=== PATIENT | male | born 1965 | race Caucasian/White ===

== ENCOUNTER 2018-12-29 18:39 | Observation (INO) | payer OTHER ==
[2018-12-29] MEDS ORDERED: SODIUM CHLORIDE 0.9% 500 ML 500 ML IV STA (19:42)
--- NOTE | 2018-12-29 19:45 | ED ---
General Adult HPI - General Chief complaint: Syncope Stated complaint: syncope Time Seen by Provider: 12/29/18 19:27 Source: patient, RN notes reviewed, old records reviewed Mode of arrival: ambulatory Limitations: no limitations - History of Present Illness Initial comments: 53-year-old male patient presents to ED for chief complaint of syncopal episode. Patient reports that he has had 3 prior syncopal episodes in the past, all at rest and with vigorous physical exertion. Patient reports that the incident today he was sitting on the couch watching television when he felt a reported poon to his head, patient reports that he positions himself and then had a loss of consciousness that he estimates is approximately 15 minutes based on the time. Patient reports that during that he urinated on himself. Patient then presented to the hospital. Patient currently reports that he has a very mild frontal lobe headache. Denies any changes in vision or pain elsewhere. Denies any chest pain or shortness of breath. Patient is a history of hypertension but denies any previous heart conditions. Denies any seizure history. Denies other complaints. Systemic: Pt denies fatigue, fever/chills, rash. Pt denies weakness, night sweats, weight loss. Neuro: Pt denies headache, visual disturbances, pre-syncope. HEENT: Pt denies ocular discharge or irritation, otalgia, rhinorrhea, pharyngitis or notable lymphadenopathy. Cardiopulmonary: Pt denies chest pain, SOB, heart palpitations, dyspnea on exertion. Abdominal/GI: Pt denies abdominal pain, n/v/d. : Pt denies dysuria, burning w/ urination, frequency/urgency. Denies new onset urinary or bowel incontinence. MSK: Pt denies myalgia, loss of strength or function in extremities. Neuro: Pt denies new onset weakness, paresthesias. - Related Data Home Medications Medication Instructions Recorded Confirmed No Known Home Medications 12/29/18 12/29/18 Allergies Allergy/AdvReac Type Severity Reaction Status Date / Time No Known Allergies Allergy Verified 12/29/18 20:13 Review of Systems ROS Statement: Those systems with pertinent positive or pertinent negative responses have been documented in the HPI. ROS Other: All systems not noted in ROS Statement are negative. Past Medical History Additional Past Medical History / Comment(s): syncope History of Any Multi-Drug Resistant Organisms: None Reported Past Surgical History: Hernia Repair Smoking Status: Never smoker Past Alcohol Use History: Occasional Past Drug Use History: Marijuana General Exam - General Exam Comments Initial Comments: Constitutional: NAD, AOX3, Pt has pleasant affect. HEENT: NC/AT, trachea midline, neck supple, no lymphadenopathy. Posterior pharynx non erythematous, without exudates. External ears appear normal, without discharge. Mucous membranes moist. Eyes PERRLA, EOM intact. There is no scleral icterus. No pallor noted. Cardiopulmonary: RRR, no murmurs, rubs or gallops, no JVD noted. Lungs CTAB in anterior and posterior timmons. No peripheral edema. Abdominal exam: Abdomen soft and non-distended. Abdomen non-tender to palpation in all 4 quadrants. Bowel sounds active in LLQ. No hepatosplenomegaly. No ecchymosis Neuro: CN II-XII intact. No nuchal rigidity. No raccon eyes, no freitas sign, no hemotympanum. No cervical spinal tenderness. MSK: No posterior calf tenderness bilaterally, homans sign negative bilaterally. Posterior tibialis and radial pulse +2 bilaterally. Sensation intact in upper and lower extremities. Full active ROM in upper and lower extremities, 5/5 stregnth. Limitations: no limitations Course Vital Signs 12/29/18 18:53 Temperature 98.2 F Pulse Rate 69 Respiratory 18 Rate Blood Pressure 180/98 O2 Sat by Pulse 99 Oximetry Medical Decision Making - Medical Decision Making 53-year-old male patient presents to ED for chief complaint of syncopal episode. Patient reports that he has had 3 prior syncopal episodes in the past, all at rest and with vigorous physical exertion. Patient reports that the incident today he was sitting on the couch watching television when he felt a reported poon to his head, patient reports that he positions himself and then had a loss of consciousness that he estimates is approximately 15 minutes based on the time. Patient reports that during that he urinated on himself. Patient then presented to the hospital. Patient currently reports that he has a very mild frontal lobe headache. Denies any changes in vision or pain elsewhere. Denies any chest pain or shortness of breath. Patient is a history of hypertension but denies any previous heart conditions. Denies any seizure history. Denies other complaints. Patient also displayed mild hypertension, otherwise stable for normal limits. Physical exam did not display acute pathology. Neurologic exam within normal limits. Laboratory investigations are non-impressive. Troponin negative. EKG not concerning for acute ischemia. Patient be admitted for syncopal episode. Case discussed with accepting physician Dr. Gallagher. - Lab Data Result diagrams: 12/29/18 19:50 12/29/18 19:50 Lab Results 12/29/18 12/29/18 12/29/18 Range/Units 19:50 19:50 19:50 WBC 10.5 (3.8-10.6) k/uL RBC 4.43 (4.30-5.90) m/uL Hgb 13.9 (13.0-17.5) gm/dL Hct 38.5 L (39.0-53.0) % MCV 87.0 (80.0-100.0) fL MCH 31.3 (25.0-35.0) pg MCHC 36.0 (31.0-37.0) g/dL RDW 12.8 (11.5-15.5) % Plt Count 272 (150-450) k/uL Neutrophils % 71 % Lymphocytes % 19 % Monocytes % 8 % Eosinophils % 0 % Basophils % 0 % Neutrophils # 7.4 (1.3-7.7) k/uL Lymphocytes # 2.0 (1.0-4.8) k/uL Monocytes # 0.8 (0-1.0) k/uL Eosinophils # 0.0 (0-0.7) k/uL Basophils # 0.0 (0-0.2) k/uL PT 9.8 (9.0-12.0) sec INR 0.9 (<1.2) APTT 24.3 (22.0-30.0) sec Sodium 139 (137-145) mmol/L Potassium 3.9 (3.5-5.1) mmol/L Chloride 104 (98-107) mmol/L Carbon Dioxide 18 L (22-30) mmol/L Anion Gap 17 mmol/L BUN 12 (9-20) mg/dL Creatinine 1.01 (0.66-1.25) mg/dL Est GFR (CKD-EPI)AfAm >90 (>60 ml/min/1.73 sqM) Est GFR (CKD-EPI)NonAf 84 (>60 ml/min/1.73 sqM) Glucose 101 H (74-99) mg/dL POC Glucose (mg/dL) (75-99) mg/dL POC Glu [employer] ID Calcium 9.7 (8.4-10.2) mg/dL Total Bilirubin 0.7 (0.2-1.3) mg/dL AST 29 (17-59) U/L ALT 23 (21-72) U/L Alkaline Phosphatase 65 (38-126) U/L Troponin I (0.000-0.034) ng/mL Total Protein 8.2 (6.3-8.2) g/dL Albumin 4.8 (3.5-5.0) g/dL 12/29/18 12/29/18 Range/Units 19:50 19:56 WBC (3.8-10.6) k/uL RBC (4.30-5.90) m/uL Hgb (13.0-17.5) gm/dL Hct (39.0-53.0) % MCV (80.0-100.0) fL MCH (25.0-35.0) pg MCHC (31.0-37.0) g/dL RDW (11.5-15.5) % Plt Count (150-450) k/uL Neutrophils % % Lymphocytes % % Monocytes % % Eosinophils % % Basophils % % Neutrophils # (1.3-7.7) k/uL Lymphocytes # (1.0-4.8) k/uL Monocytes # (0-1.0) k/uL Eosinophils # (0-0.7) k/uL Basophils # (0-0.2) k/uL PT (9.0-12.0) sec INR (<1.2) APTT (22.0-30.0) sec Sodium (137-145) mmol/L Potassium (3.5-5.1) mmol/L Chloride (98-107) mmol/L Carbon Dioxide (22-30) mmol/L Anion Gap mmol/L BUN (9-20) mg/dL Creatinine (0.66-1.25) mg/dL Est GFR (CKD-EPI)AfAm (>60 ml/min/1.73 sqM) Est GFR (CKD-EPI)NonAf (>60 ml/min/1.73 sqM) Glucose (74-99) mg/dL POC Glucose (mg/dL) 105 H (75-99) mg/dL POC Glu [employer] ID Srinath Doll Calcium (8.4-10.2) mg/dL Total Bilirubin (0.2-1.3) mg/dL AST (17-59) U/L ALT (21-72) U/L Alkaline Phosphatase (38-126) U/L Troponin I <0.012 (0.000-0.034) ng/mL Total Protein (6.3-8.2) g/dL Albumin (3.5-5.0) g/dL Disposition Clinical Impression: Syncopal episodes Disposition: ADMITTED IP TO THIS HOSP Condition: Fair Is patient prescribed a controlled substance at d/c from ED?: No Referrals: Maykel Carreno MD [Primary Care Provider] - 1-2 days
[2018-12-29 19:59] LABS: Glucose,Whole Blood 105 mg/dL (75-99)
[2018-12-29 20:36] LABS: Basophils % (A) 0 %; Eosinophils % (A) 0 %; HCT 38.5 % (39.0-53.0); HGB 13.9 gm/dL (13.0-17.5); Lymphocytes % (A) 19 %; MCH 31.3 pg (25.0-35.0); Mean Platelet Volume 6.8; Monocytes # (A) 0.8 k/uL (0-1.0); Monocytes % (A) 8 %; Neutrophils # (A) 7.4 k/uL (1.3-7.7); Neutrophils % (A) 71 %; Platelet Count 272 k/uL (150-450); RBC 4.43 m/uL (4.30-5.90); RDW 12.8 % (11.5-15.5); WBC 10.5 k/uL (3.8-10.6)
[2018-12-29 20:45] LABS: INR 0.9 (<1.2); Partial Thromboplastin Time 24.3 sec (22.0-30.0); Prothrombin Time 9.8 sec (9.0-12.0)
[2018-12-29 20:46] LABS: ALT 23 U/L (21-72); AST 29 U/L (17-59); African American GFR (CKD) >90 (>60 ml/min/1.73 sqM); Albumin 4.8 g/dL (3.5-5.0); Alkaline Phosphatase 65 U/L (38-126); Anion Gap 17 mmol/L; Blood Urea Nitrogen 12 mg/dL (9-20); Calcium 9.7 mg/dL (8.4-10.2); Carbon Dioxide 18 mmol/L (22-30); Chloride 104 mmol/L (98-107); Glucose 101 mg/dL (74-99); Potassium 3.9 mmol/L (3.5-5.1); Sodium 139 mmol/L (137-145); Total Bilirubin 0.7 mg/dL (0.2-1.3); Total Protein 8.2 g/dL (6.3-8.2)
--- NOTE | 2018-12-29 20:57 | XR ---
EXAMINATION TYPE: XR chest 2V DATE OF EXAM: 12/29/2018 COMPARISON: NONE HISTORY: Syncope TECHNIQUE: Frontal and lateral views of the chest are obtained. FINDINGS: Heart and mediastinum are normal. Lungs are clear. Diaphragm is normal. Bony thorax appear s normal. IMPRESSION: Normal chest.
--- NOTE | 2018-12-29 21:54 | CT ---
EXAMINATION TYPE: CT brain wo con DATE OF EXAM: 12/29/2018 COMPARISON: None HISTORY: Pt experienced syncopal episode, pt states he was asleep, or out for about 20 minutes, urina adebayo involuntarily. CT DLP: 1094.4 mGycm Automated exposure control for dose reduction was used. FINDINGS: Ventricles and sulci appear normal. There is no mass effect nor midline shift. There is no sign of in tracranial hemorrhage. The calvarium is intact. IMPRESSION: NEGATIVE HEAD CT SCAN.
[2018-12-29] MEDS ORDERED: NALOXONE 0.4 MG/ML 1 ML VIAL IV PRN (22:57)
--- NOTE | 2018-12-30 03:08 | P.HPIM ---
History of Present Illness H&P Date: 12/29/18 Chief Complaint: Presyncope 53-year-old male with no significant past medical history except for mild hypertension Patient presents today due to concerns regarding urinary incontinence during sleep/while passed out. Patient reports that he was at baseline status of health he was working from home when suddenly he remembered his that who during the month of December years ago. Then he felt a poon going up his had lichen adrenally and poon and then felt very tired and sleepy he was working on his computer he showed off the computer and put his head down on the couch to lay down and relax, then he woke up 30 minutes later and found himself wet from urination. He denies any other injuries or any tongue biting there were no witnesses to whether he was seizing or passed out or just sleeping. Patient reports similar episodes over the past couple years happening once every 6 months where he will feel an adrenally poon to the head and then he feels that he needs to rest after. Last time happened 6 months ago he was at the gym after a good workout with no limitations to his workout in any form of shortness of breath or any chest pain or any palpitations. He then was taking a warm shower when suddenly felt that he needs to sit down and relax and he thinks he might have slept or passed out in the shower but then woke up and then left the shower with no incidence he didn't seek any medical attention at that time. He also adds that over the weekend he was partying by drinking alcohol no other drugs were used except for his regular medical marijuana at the [facility]. During the episodes mentioned above he denies any associated shortness of breath or dizziness denies any associated palpitations chest pain or nausea or vomiting. He came into the hospital because he was concerned regarding the urine incontinence which has never happened before. In the ED his initial labs were unremarkable vital signs showed elevated systolic blood pressure. CT of the brain was negative patient was admitted for neuro and cardiac monitoring and evaluation with further testing including but not limited to echocardiogram and EEG Review of Systems Pertinent positives as noted in HPI. All other systems were reviewed and are negative Past Medical History Additional Past Medical History / Comment(s): syncope History of Any Multi-Drug Resistant Organisms: None Reported Past Surgical History: Hernia Repair Past Anesthesia/Blood Transfusion Reactions: No Reported Reaction Smoking Status: Never smoker - Past Family History Father Family Medical History: Cancer Additional Family Medical History / Comment(s): Prostate CA Mother Family Medical History: No Reported History Medications and Allergies Home Medications Medication Instructions Recorded Confirmed Type No Known Home Medications 12/29/18 12/29/18 History Allergies Allergy/AdvReac Type Severity Reaction Status Date / Time No Known Allergies Allergy Verified 12/30/18 00:34 Physical Exam Vitals: Vital Signs Temp Pulse Pulse Resp BP BP Pulse Ox 12/30/18 01:02 18 12/30/18 00:00 98.4 F 70 18 167/93 99 12/29/18 23:04 68 18 160/92 97 12/29/18 18:53 98.2 F 69 18 180/98 99 Intake and Output 12/29/18 12/29/18 12/30/18 14:59 22:59 06:59 Intake Total 500 Balance 500 Intake: Amount of Fluid Infused ( 500 ml) Other: Weight 77.111 kg Constitutional: No acute distress, conversant, pleasant Eyes: Anicteric sclerae, moist conjunctiva, no lid-lag Pupils equal round reactive to light ENMT: NC/AT Oropharynx clear, no erythema, exudates Neck: Supple, FROM, no masses, or JVD No carotid bruits No thyromegaly Lungs: Clear to auscultation Clear to percussion Normal respiratory effort, no accessory muscle use Cardiovascular: Heart regular in rate and rhythm, No murmurs, gallops, or rubs No peripheral edema Abdominal: Soft Nontender, no guarding, rebound or rigidity Abdomen moving with respiration Normoactive bowel sounds No hepatomegaly, No splenomegaly No palpable mass No abdominal wall hernia noted Skin: Normal temperature, tone, texture, turgor No induration No subcutaneous nodules No rash, lesions No ulcers Extremities: No digital cyanosis No clubbing Pedal pulses intact and symmetrical Radial pulses intact and symmetrical No calf tenderness Psychiatric: Alert and oriented to person, place and time Appropriate affect fair judgment Neuro Muscles Strength 5/5 in all 4 extremities Sensation to light touch grossly present throughout Cranial nerves II-XII grossly intact No focal sensory deficits Lymphatics: no palpable cervical or supraclavicular , or inguinal lymph nodes Results CBC & Chem 7: 12/29/18 19:50 12/29/18 19:50 Labs: Abnormal Lab Results - Last 24 Hours (Table) 12/29/18 12/29/18 12/29/18 Range/Units 19:50 19:50 19:56 Hct 38.5 L (39.0-53.0) % Carbon Dioxide 18 L (22-30) mmol/L Glucose 101 H (74-99) mg/dL POC Glucose (mg/dL) 105 H (75-99) mg/dL Thrombosis Risk Factor Assmnt - Choose All That Apply Each Factor Represents 1 point: Age 41-60 years Thrombosis Risk Factor Assessment Total Risk Factor Score: 1 Thrombosis Risk Factor Assessment Level: Low Risk Assessment and Plan Assessment: 53-year-old male with history of hypertension admitted under observation with anticipated length of stay less than 2 midnights to rule out and monitor for any underlying seizures or arrhythmias Plan: Presyncope, rule out arrhythmia versus seizures Urine incontinence while sleeping/passed out Neurochecks Cardiac monitoring Follow-up electrolytes Cardiology consult Neuro consult Check EEG Check echo Monitor vital signs closely Hypertension Monitor vital signs closely A systolic blood pressure consistently elevated we'll consider starting patient on antihypertensive Full code DVT prophylaxis: Mechanical Discussed with: Patient, ER, RN Anticipated length of stay less than [address]: Home A total of 60 minutes was spent on the care of this complex patient more than 50% of the time was spent in counseling and care coordination.
[2018-12-30] MEDS ORDERED: SODIUM CHLORIDE 0.9% 1,000 ML IV SCH (03:15)
--- NOTE | 2018-12-30 03:42 | ED ---
Medical Decision Making - Lab Data Result diagrams: 12/29/18 19:50 12/29/18 19:50 Lab Results 12/29/18 12/29/18 12/29/18 Range/Units 19:50 19:50 19:50 WBC 10.5 (3.8-10.6) k/uL RBC 4.43 (4.30-5.90) m/uL Hgb 13.9 (13.0-17.5) gm/dL Hct 38.5 L (39.0-53.0) % MCV 87.0 (80.0-100.0) fL MCH 31.3 (25.0-35.0) pg MCHC 36.0 (31.0-37.0) g/dL RDW 12.8 (11.5-15.5) % Plt Count 272 (150-450) k/uL Neutrophils % 71 % Lymphocytes % 19 % Monocytes % 8 % Eosinophils % 0 % Basophils % 0 % Neutrophils # 7.4 (1.3-7.7) k/uL Lymphocytes # 2.0 (1.0-4.8) k/uL Monocytes # 0.8 (0-1.0) k/uL Eosinophils # 0.0 (0-0.7) k/uL Basophils # 0.0 (0-0.2) k/uL PT 9.8 (9.0-12.0) sec INR 0.9 (<1.2) APTT 24.3 (22.0-30.0) sec Sodium 139 (137-145) mmol/L Potassium 3.9 (3.5-5.1) mmol/L Chloride 104 (98-107) mmol/L Carbon Dioxide 18 L (22-30) mmol/L Anion Gap 17 mmol/L BUN 12 (9-20) mg/dL Creatinine 1.01 (0.66-1.25) mg/dL Est GFR (CKD-EPI)AfAm >90 (>60 ml/min/1.73 sqM) Est GFR (CKD-EPI)NonAf 84 (>60 ml/min/1.73 sqM) Glucose 101 H (74-99) mg/dL POC Glucose (mg/dL) (75-99) mg/dL POC Glu [employer] Interpreter ID Calcium 9.7 (8.4-10.2) mg/dL Total Bilirubin 0.7 (0.2-1.3) mg/dL AST 29 (17-59) U/L ALT 23 (21-72) U/L Alkaline Phosphatase 65 (38-126) U/L Troponin I (0.000-0.034) ng/mL Total Protein 8.2 (6.3-8.2) g/dL Albumin 4.8 (3.5-5.0) g/dL 12/29/18 12/29/18 Range/Units 19:50 19:56 WBC (3.8-10.6) k/uL RBC (4.30-5.90) m/uL Hgb (13.0-17.5) gm/dL Hct (39.0-53.0) % MCV (80.0-100.0) fL MCH (25.0-35.0) pg MCHC (31.0-37.0) g/dL RDW (11.5-15.5) % Plt Count (150-450) k/uL Neutrophils % % Lymphocytes % % Monocytes % % Eosinophils % % Basophils % % Neutrophils # (1.3-7.7) k/uL Lymphocytes # (1.0-4.8) k/uL Monocytes # (0-1.0) k/uL Eosinophils # (0-0.7) k/uL Basophils # (0-0.2) k/uL PT (9.0-12.0) sec INR (<1.2) APTT (22.0-30.0) sec Sodium (137-145) mmol/L Potassium (3.5-5.1) mmol/L Chloride (98-107) mmol/L Carbon Dioxide (22-30) mmol/L Anion Gap mmol/L BUN (9-20) mg/dL Creatinine (0.66-1.25) mg/dL Est GFR (CKD-EPI)AfAm (>60 ml/min/1.73 sqM) Est GFR (CKD-EPI)NonAf (>60 ml/min/1.73 sqM) Glucose (74-99) mg/dL POC Glucose (mg/dL) 105 H (75-99) mg/dL POC Glu [employer] Interpreter ID Lavon, Srinath Calcium (8.4-10.2) mg/dL Total Bilirubin (0.2-1.3) mg/dL AST (17-59) U/L ALT (21-72) U/L Alkaline Phosphatase (38-126) U/L Troponin I <0.012 (0.000-0.034) ng/mL Total Protein (6.3-8.2) g/dL Albumin (3.5-5.0) g/dL - EKG Data -: EKG Interpreted by Me (and Dr. Vogel) EKG Comments: Ventricular rate 72, painful 154, QR is 100, QT/QTc 416/455. No sinus rhythm, normal EKG, no concern for acute ischemia. Disposition Clinical Impression: Syncopal episodes Disposition: ADMITTED IP TO THIS HOSP Condition: Fair Is patient prescribed a controlled substance at d/c from ED?: No
[2018-12-30 04:55] LABS: Appearance,Urine Clear (Clear); Bilirubin,Urine Negative (Negative); Blood,Urine Negative (Negative); Color,Urine Yellow; Glucose,Urine (UA) Negative (Negative); Ketones,Urine Trace (Negative); Leukocyte Esterase,Urine Negative (Negative); Nitrite,Urine Negative (Negative); Protein,Urine Negative (Negative); Specific Gravity,Urine 1.009 (1.001-1.035); Urobilinogen,Urine <2.0 mg/dL (<2.0)
[2018-12-30] MEDS ORDERED: LISINOPRIL 20 MG TAB PO SCH (11:30)
[2018-12-30] MEDS ORDERED: amLODIPine 5 MG TAB PO SCH (11:30)
--- NOTE | 2018-12-30 12:54 | P.CRDCN ---
History of Present Illness History of present illness: This is a pleasant 53-year-old male past medical history significant for syncope in the past, hypertension not currently taking medication and marijuana use. He denies prior history of coronary artery disease, dyslipidemia or diabetes mellitus. We have been asked to see him in consultation secondary to syncope. He states yesterday evening while he was sitting down working on his computer he started feeling acutely flushed and a warm sensation rushing to his head. He turned off his computer and laid down on the couch. The next thing he remembers is waking up approximately 30-45 minutes later. He denies chest pain, shortness of breath, dizziness, nausea, vomiting or palpitations. He was not clammy or sweaty. When he woke up he noticed he had urinated on himself. He has had this happen in the past around 2-3 times over the course of the last 3 years however he has never urinated on himself before. EKG reveals sinus mechanism with no acute ST or T wave abnormalities noted. Telemetry tracings unremarkable. Chest x-ray is negative for acute cardiopulmonary process. CT of the brain is unremarkable. He takes no daily cardiac medications. At the time of my exam: CONSTITUTIONAL: Denies fever. Denies chills. EYES: Denies blurred vision. Denies vision changes. Denies eye pain. EARS, NOSE, MOUTH & THROAT: Denies headache. Denies sore throat. Denies ear pain. CARDIOVASCULAR: Denies chest pain. Denies shortness of breath. Denies orthopnea. Denies PND. Denies palpitations. RESPIRATORY: Denies cough. GASTROINTESTINAL: Denies abdominal pain. Denies diarrhea. Denies constipation. Denies nausea. Denies vomiting. MUSCULOSKELETAL: Denies myalgias. INTEGUMENTARY: Denies pruitis. Denies rash. NEUROLOGIC: Denies numbness. Denies tingling. Denies weakness. PSYCHIATRIC: Denies anxiety. Denies depression. ENDOCRINE: Denies fatigue. Denies weight change. Denies polydipsia. Denies polyurina. GENITOURINARY: Denies burning, hematuria or urgency with micturation. HEMATOLOGIC: Denies history of anemia. Denies bleeding. Blood pressure 181/101 with a heart rate of 68 afebrile maintaining oxygen saturation on room air GENERAL: This is a 53-year-old male in no apparent distress at the time of my examination. HEENT: Head is atraumatic, normocephalic. Pupils are equal, round. Sclerae anicteric. Conjunctivae are clear. Mucous membranes of the mouth are moist. Neck is supple. There is no jugular venous distention. No carotid bruit is heard. LUNGS: Clear to auscultation no wheezes, rales or rhonchi. No chest wall tenderness is noted on palpation or with deep breathing. HEART: Regular rate and rhythm without murmurs, rubs or gallops. S1 and S2 heard. ABDOMEN: Soft, nontender. Bowel sounds are heard. No organomegaly noted. EXTREMITIES: No evidence of peripheral edema and no calf tenderness noted. VASCULAR: Radial and dorsalis pedis pulses palpated, no evidence of clubbing. NEUROLOGIC: Patient is awake, alert and oriented x3. ASSESSMENT Syncope, possibly related to vasovagal response Hypertension PLAN Obtain 2D echocardiogram and doppler study to assess cardiac structure and function. Initiate on lotrel 5/20 mg daily. No telemetry evidence to suggest rk/tachy-arrhythmia. Check for orthostatic changes. If above diagnostic testing is unremarkable apply 30-day event monitor. Will schedule for outpatient tilt table test. Thank you kindly for this consultation. Nurse Practitioner note has been reviewed, I agree with a documented findings and plan of care. Patient was seen and examined. Past Medical History Additional Past Medical History / Comment(s): syncope History of Any Multi-Drug Resistant Organisms: None Reported Past Surgical History: Hernia Repair Past Anesthesia/Blood Transfusion Reactions: No Reported Reaction Smoking Status: Never smoker - Past Family History Father Family Medical History: Cancer Additional Family Medical History / Comment(s): Prostate CA Mother Family Medical History: No Reported History Medications and Allergies Home Medications Medication Instructions Recorded Confirmed Type No Known Home Medications 12/29/18 12/29/18 History Allergies Allergy/AdvReac Type Severity Reaction Status Date / Time No Known Allergies Allergy Verified 12/30/18 00:34 Physical Exam Vitals: Vital Signs Temp Pulse Pulse Pulse Pulse Pulse Resp 12/30/18 12:00 68 69 73 69 16 12/30/18 11:34 98.1 F 68 16 12/30/18 09:08 69 73 69 12/30/18 08:00 62 69 73 69 18 12/30/18 07:56 98.0 F 62 18 12/30/18 04:00 97.7 F 66 18 12/30/18 01:02 18 12/30/18 00:00 98.4 F 70 18 12/29/18 23:04 68 18 12/29/18 18:53 98.2 F 69 18 BP BP BP BP BP BP Pulse Ox 12/30/18 12:00 12/30/18 11:34 181/101 100 12/30/18 09:08 186/95 166/108 155/83 98 12/30/18 08:00 12/30/18 07:56 170/83 98 12/30/18 04:00 135/75 99 12/30/18 01:02 12/30/18 00:00 167/93 99 12/29/18 23:04 160/92 97 12/29/18 18:53 180/98 99 Intake and Output 12/29/18 12/30/18 12/30/18 22:59 06:59 14:59 Intake Total 500 Balance 500 Intake: Amount of Fluid Infused ( 500 ml) Other: Voiding Method Toilet Weight 77.111 kg Results 12/29/18 19:50 12/29/18 19:50 Cardiac Enzymes 12/29/18 12/29/18 Range/Units 19:50 19:50 AST 29 (17-59) U/L Troponin I <0.012 (0.000-0.034) ng/mL Coagulation 12/29/18 Range/Units 19:50 PT 9.8 (9.0-12.0) sec APTT 24.3 (22.0-30.0) sec CBC 12/29/18 Range/Units 19:50 WBC 10.5 (3.8-10.6) k/uL RBC 4.43 (4.30-5.90) m/uL Hgb 13.9 (13.0-17.5) gm/dL Hct 38.5 L (39.0-53.0) % Plt Count 272 (150-450) k/uL Comprehensive Metabolic Panel 12/29/18 Range/Units 19:50 Sodium 139 (137-145) mmol/L Potassium 3.9 (3.5-5.1) mmol/L Chloride 104 (98-107) mmol/L Carbon Dioxide 18 L (22-30) mmol/L BUN 12 (9-20) mg/dL Creatinine 1.01 (0.66-1.25) mg/dL Glucose 101 H (74-99) mg/dL Calcium 9.7 (8.4-10.2) mg/dL AST 29 (17-59) U/L ALT 23 (21-72) U/L Alkaline Phosphatase 65 (38-126) U/L Total Protein 8.2 (6.3-8.2) g/dL Albumin 4.8 (3.5-5.0) g/dL Current Medications Generic Name Dose Route Start Last Admin Trade Name Freq PRN Reason Stop Dose Admin Amlodipine Besylate 5 mg 12/30/18 11:30 12/30/18 11:30 Norvasc PO 5 mg DAILY MICHELLE Administration Sodium Chloride 1,000 mls @ 100 mls/hr 12/30/18 03:15 12/30/18 06:30 Saline 0.9% IV 100 mls/hr .Q10H MICHELLE Administration Lisinopril 20 mg 12/30/18 11:30 12/30/18 11:30 Zestril PO 20 mg DAILY MICHELLE Administration Naloxone HCl 0.2 mg 12/29/18 22:57 Narcan IV Q2M PRN Opioid Reversal Intake and Output 12/29/18 12/30/18 12/30/18 22:59 06:59 14:59 Intake Total 500 Balance 500 Intake: Amount of Fluid Infused ( 500 ml) Other: Voiding Method Toilet Weight 77.111 kg 12/29/18 19:50 12/29/18 19:50
--- NOTE | 2018-12-30 13:00 | ECHOF ---
Referral Reason:pre syncope MEASUREMENTS -------- HEIGHT: 175.3 cm WEIGHT: 77.1 kg BP: 135/75 RVIDd: 3.2 cm (< 3.3) IVSd: 1.2 cm (0.6 - 1.1) LVIDd: 3.5 cm (3.9 - 5.3) LVPWd: 1.3 cm (0.6 - 1.1) IVSs: 1.6 cm LVIDs: 2.3 cm LVPWs: 1.9 cm LA Diam: 3.6 cm (2.7 - 3.8) LAESV Index (A-L): 29.93 ml/m Ao Diam: 3.2 cm (2.0 - 3.7) AV Cusp: 2.1 cm (1.5 - 2.6) MV EXCURSION: 15.792 mm (> 18.000) MV EF SLOPE: 134 mm/s (70 - 150) EPSS: 0.3 cm MV E Pee: 0.88 m/s MV DecT: 295 ms MV A Pee: 0.71 m/s MV E/A Ratio: 1.24 RAP: 5.00 mmHg RVSP: 25.25 mmHg TAPSE: 18.35 mm FINDINGS -------- Sinus rhythm. This was a technically good study. The left ventricular size is normal. There is borderline concentric left ventricular hypertrophy. The diastolic filling pattern is normal for the age of the patient 7.68. The right ventricle is normal in size. The left atrial size is normal. The right atrium is normal in size. Interatrial and interventricular septum intact. The aortic valve is trileaflet and appears structurally normal. Trace to mild aortic regurgitation. There is trace mitral regurgitation. Mild tricuspid regurgitation present. Right ventricular systolic pressure is normal at < 35 mmHg. Trace/mild (physiologic) pulmonic regurgitation. The aortic root size is normal. Normal inferior vena cava with normal inspiratory collapse consistent with estimated right atrial pre ssure of 5 mmHg. There is no pericardial effusion. CONCLUSIONS -------- 1. Sinus rhythm. 2. This was a technically good study. 3. The left ventricular size is normal. 4. There is borderline concentric left ventricular hypertrophy. 5. The diastolic filling pattern is normal for the age of the patient 7.68 6. The right ventricle is normal in size. 7. The left atrial size is normal. 8. The right atrium is normal in size. 9. Interatrial and interventricular septum intact. 10. The aortic valve is trileaflet and appears structurally normal. 11. Trace to mild aortic regurgitation. 12. There is trace mitral regurgitation. 13. Mild tricuspid regurgitation present. 14. Right ventricular systolic pressure is normal at < 35 mmHg. 15. Trace/mild (physiologic) pulmonic regurgitation. 16. The aortic root size is normal. 17. Normal inferior vena cava with normal inspiratory collapse consistent with estimated right atrial pressure of 5 mmHg. 18. There is no pericardial effusion. MANAGER STATISTICAL PROGRAMMING: Shaniqua Alan RDCS
[2018-12-30 15:47] VITALS: BP 151/88; PULSE 60; RESP 18; TEMP 98.4
--- NOTE | 2018-12-30 17:08 | P.DS ---
Providers Date of admission: 12/29/18 23:20 Expected date of discharge: 12/30/18 Attending physician: Sydney Gallagher MD Consults: 12/29/18 22:57 Consult Physician Stat Consulting Provider: Barbie Cruz Consult Reason/Comments: syncopal episode Do you want consulting provider notified?: Yes, Notify in am Consult Physician Stat Consulting Provider: Ángel Harrington Consult Reason/Comments: syncopal episode Do you want consulting provider notified?: Yes, Notify in am Primary care physician: [facility] Course: The patient is a 53-year-old male with a PMH of diet-controlled hypertension who presented to the ED after possible episodes of syncope. The patient noted that over the past 2-3 years, he has had 4-5 episodes of instances where he would feel a sudden poon to the head, followed by a feeling of lethargy where he would "take a nap", and would wake up after a few minutes, feeling back to his baseline. The patient notes that a similar episode happened yesterday, but this time after awakening, he noticed that he had urinary incontinence. He denied having chest pain, palpitations, or shortness of breath during these episodes. He also denied noticing any tongue bites. He also denied any drug use other than marijuana, which he last used a few days prior. The patient underwent an extensive outpatient in the emergency room with a CT brain that was unremarkable and an EKG that revealed a normal sinus rhythm at 72 bpm. Patient was admitted under observation for further monitoring and evaluation by both cardiology and neurology. The patient underwent an echocardiogram which was unremarkable. The patient was started on Lotrel 50/20, and cardiology recommended an outpatient tilt table test along with a 30 day event monitor. Neurology evaluated the patient and recommended no further intervention that the patient may follow-up with his primary care as an outpatient. Patient was seen and examined at the bedside on the day of discharge. He was in good spirits and denied any active complaints. He noted no further similar symptoms and felt that he has been back to his baseline since the episode. He denied chest pain, shortness of nausea, vomiting, dizziness, or loss of consciousness. Patient was advised that if his symptoms recur or worsen, that he should return back to the emergency room immediately. Physical Examination General: Non-toxic, in no acute distress, appears stated age, normal weight HEENT: NC/AT, anicteric sclerae, moist conjunctiva, no lid-lag, PERRLA Cardiovascular: S1/S2 wnl, no murmurs, rubs, or gallops Lungs: Clear to auscultation, normal respiratory effort, no accessory muscle use Abdominal: Soft, non-tender, non-distended, no guarding, rebound, or rigidity Skin: Warm, dry Extremities: No edema or contractures Psychiatric: Alert and oriented to person, place and time, appropriate affect Neuro: CN II-XII grossly intact, Strength 5/5 in all 4 extremities, Speech intact, Sensation to light touch grossly intact throughout Discharge diagnosis: Pre-syncope; HTN A total of 35 minutes of time were spent preparing this complex discharge summary. Patient Condition at Discharge: Fair Plan - Discharge Summary New Discharge Prescriptions: New amLODIPine [Norvasc] 5 mg PO DAILY #30 tab Lisinopril [Zestril] 20 mg PO DAILY #30 tab Discharge Medication List Lisinopril [Zestril] 20 mg PO DAILY #30 tab 12/30/18 [Rx] amLODIPine [Norvasc] 5 mg PO DAILY #30 tab 12/30/18 [Rx] Follow up Appointment(s)/Referral(s): Elida Berumen MD [STAFF PHYSICIAN] - 6 Weeks (Tilt table study scheduled for January 01. Please call [phone] after 1 pm on SaturdayDec 31 for time of arrival. ) Maykel Carreno MD [Primary Care Provider] - 1-2 days Discharge Disposition: HOME SELF-CARE
--- NOTE | 2018-12-30 19:59 | P.CNNES ---
History of Present Illness Consult date: 12/30/18 Reason for Consult: Concern for syncopal episode vs. seizure Chief complaint: Urinary incontinence History of Present Illness: HISTORY OF PRESENT ILLNESS: Thank you for allowing me to evaluate Mr. Federico Ambrose. Mr. Ambrose is a 53-year-old male with no known past medical history presenting with an episode of feeling "off" and waking up having had urinary incontinence, consulted neurology for concern for seizure. Patient states that since about 2 years ago, he's had about 5-6 episodes of feeling a "poon" into his head, one of those episodes occurred when he had not eaten anything all day, had worked out extensively, and felt dizzy in the shower and fell on his knees because he was trying to catch himself. Patient denies any loss of consciousness or abnormal movements. Yesterday, he was working on his computer when he started not feeling right. He put his computer down, went to sleep for about 30 minutes, and when he woke up, he had noticed that he had urinated on himself. Denies tongue biting, any confusion or tiredness when he woke up. First time having urinary incontinence. Patient also endorses that these episodes appear to happen about 1-2 days after he "parties hard" where he drinks a good amount of alcohol. He does drink a good amount on a regular basis but not daily. He has gone without drinking for 1 week. Patient denies ever having EtOH withdrawal symptoms. 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 Patient also states that this week about 15 years ago patient's father , so there were additional thoughts going on in his head. PAST MEDICAL HISTORY: Hypertension, which patient was able to manage with diet exercise PAST SURGICAL HISTORY: Hernia repair HOME MEDICATIONS: None ALLERGIES: NO KNOWN DRUG ALLERGIES SOCIAL HISTORY: Denies smoking or drug abuse history. Patient does use medical marijuana for sleep. Patient does drink somewhat heavily, but patient himself does not think that he has abused issue FAMILY HISTORY: Sister with anxiety and fainting episodes. Father had prostate cancer. Mother at age 92. REVIEW OF SYSTEMS: The 14 systems are reviewed and no additional points are identified compared to the review of systems documented history and physical PHYSICAL EXAMINATION: VITAL SIGNS: T 98.4 HR 60 RR18 BP 151/88 O2 saturation 151/88 GEN.: NAD, pleasant and cooperative HEENT: NCAT, sclera without icterus NECK: Supple, no carotid bruit SKIN AND EXTREMITIES: Warm to touch, no edema NEURO: MENTAL STATUS: Patient alert and oriented to self, place, time. Able to name the current president. Speech fluent, able to name and repeat, following all commands readily. No right and left disorientation, extinction to double simultaneous stimulation, finger agnosia, neglect. CRANIAL NERVES II THROUGH XII: II: Pupils are equal and reactive to light symmetrically. No afferent pupillary defect. Visual timmons are intact. III, IV, : No ptosis. Extraocular movements full. No nystagmus. V: Facial sensation intact from V1-3. VII. No clear facial asymmetry. VIII: Hearing intact to finger rub bilaterally. IX, X: Symmetric palate elevation. XI: Shoulder shrug intact. XII: Tongue midline without fasciculation or atrophy. MOTOR: Normal bulk/tone. No pronator drift or tremor. Strength is 5/5 throughout all 4 extremities. SENSORY: Intact to light touch, temperature, pinprick in all 4 extremities. Romberg is negative. REFLEXES: 2+ throughout. Toes are downgoing. No clonus. Mari's is absent COORDINATION: Finger to nose and heel to baer intact. No dysmetria. Rapid alternating movements with good speed and accuracy. GAIT: Narrow-based and stable. Able to toe/heel/tandem walk DIAGNOSTIC TESTING: LABORATORY: WBC 10.5 hemoglobin 13.9 platelet 272 PT 19.8 INR 0.9 Sodium 139 potassium 3.9 chloride 104 bicarb 18 BUN 12 creatinine 1.01 glucose 101 AST 29 ALT 23 alk phos 65 troponin <0.012 urinalysis trace ketones IMAGING: CT head without contrast 12/29/2018: Negative head computed tomography scan. Transthoracic echocardiogram 12/30/2018: Sinus rhythm. LV/RV/LA/RA sizes are normal. Borderline concentric left ventricular hypertrophy. ASSESSMENT/RECOMMENDATIONS: Mr. Ambrose is a 53-year-old male with no known past medical history presenting with an episode of feeling "off" and waking up having had urinary incontinence, consulted neurology for concern for seizure. No loss of consciousness or abnormal movements. Patient's episodes do not appear seizure-like, and seizures are very low on the differential. Patient found with high blood pressure in the 180s, and patient associating these episodes in high stress condition and/or having "partied hard." Spoke to patient and in depth about seizure precaution although seizure is low on the differential. Also discussed with patient about keeping a good diary of his BP, especially when he has these sensations of "rushing to the head." Recommend patient being started on an a ntihypertensive. Patient has an appointment with a new PCP on 01/15/2019. Past Medical History Additional Past Medical History / Comment(s): syncope History of Any Multi-Drug Resistant Organisms: None Reported Past Surgical History: Hernia Repair Past Anesthesia/Blood Transfusion Reactions: No Reported Reaction Smoking Status: Never smoker - Past Family History Father Family Medical History: Cancer Additional Family Medical History / Comment(s): Prostate CA Mother Family Medical History: No Reported History Medications and Allergies Home Medications Medication Instructions Recorded Confirmed Type Lisinopril [Zestril] 20 mg PO DAILY #30 tab 12/30/18 Rx amLODIPine [Norvasc] 5 mg PO DAILY #30 tab 12/30/18 Rx Allergies Allergy/AdvReac Type Severity Reaction Status Date / Time No Known Allergies Allergy Verified 12/30/18 00:34 Physical Examination - Vital Signs Vital Signs: Vital Signs Temp Pulse Pulse Pulse Pulse Pulse Resp 12/30/18 16:00 60 69 73 69 18 12/30/18 15:46 98.4 F 60 18 12/30/18 12:00 68 69 73 69 16 12/30/18 11:34 98.1 F 68 16 12/30/18 09:08 69 73 69 12/30/18 08:00 62 69 73 69 18 12/30/18 07:56 98.0 F 62 18 12/30/18 04:00 97.7 F 66 18 12/30/18 01:02 18 12/30/18 00:00 98.4 F 70 18 12/29/18 23:04 68 18 12/29/18 18:53 98.2 F 69 18 BP BP BP BP BP BP Pulse Ox 12/30/18 16:00 12/30/18 15:46 151/88 100 12/30/18 12:00 12/30/18 11:34 181/101 100 12/30/18 09:08 186/95 166/108 155/83 98 12/30/18 08:00 12/30/18 07:56 170/83 98 12/30/18 04:00 135/75 99 12/30/18 01:02 12/30/18 00:00 167/93 99 12/29/18 23:04 160/92 97 12/29/18 18:53 180/98 99 Intake and Output 12/30/18 12/30/18 12/30/18 06:59 14:59 22:59 Intake Total 500 400 400 Balance 500 400 400 Intake: Amount of Fluid Infused ( 500 ml) Oral 400 Other 400 Other: Voiding Method Toilet Toilet Results - Laboratory Findings CBC and BMP: 12/29/18 19:50 12/29/18 19:50 Abnormal Lab Findings: Abnormal Labs 12/29/18 12/29/18 12/29/18 19:50 19:50 19:56 Hct 38.5 L Carbon Dioxide 18 L Glucose 101 H POC Glucose (mg/dL) 105 H Urine Ketones 12/30/18 04:15 Hct Carbon Dioxide Glucose POC Glucose (mg/dL) Urine Ketones Trace H
--- NOTE | 2018-12-30 22:54 | EEG ---
ELECTROENCEPHALOGRAM REPORT DATE OF PROCEDURE: 12/30/2018 ELECTROENCEPHALOGRAM (EEG) REPORT: TECHNIQUE: A routine 18-channel EEG was performed with video using the 10/20 international electrode placement system. HISTORY: Patient presented with a funny feeling in his head. The patient lay down and woke up 30 minutes later with incontinence. CURRENT MEDICATIONS: None. STUDY DURATION: 30 minutes. FINDINGS: BACKGROUND: The background activity consisted of 8-9 Hz rhythmic waveforms symmetrically distributed over both posterior quadrants. ACTIVATION: Hyperventilation: Induced mild physiological slowing. Photic Stimulation: Symmetric driving seen. Sleep: Drowsy. ABNORMALITIES: None. Please note that one channel of this EEG was dedicated to EKG. It demonstrated a sinus rhythm. IMPRESSION: Normal EEG. No epileptiform activity was present. No seizures were recorded. MMZOILAL / IJN: [id number] / MTDD
== END 2018-12-30 17:35 | disposition home or self-care (01) ==
LOC: EC 18:39 → 1SOBS 23:20
PROVIDERS: ADMIT Internal Medicine; ATTEND Internal Medicine
DX: R55 Syncope and collapse (principal); R32 Unspecified urinary incontinence; I10 Essential (primary) hypertension; R53.83 Other fatigue; F12.90 Cannabis use, unspecified, uncomplicated; Z80.42 Family history of malignant neoplasm of prostate; Z81.8 Family history of other mental and behavioral disorders
CPT/HCPCS: 96360; 96361 ×2; 99285; 36415; 95819; 93005; 93306; 93270; 80053; 84484; 85025; 85610; 85730; 81003; 71046; 70450; G0378 ×2

== ENCOUNTER 2019-01-01 08:06 | Day surgery (SDC) | payer OTHER ==
[2018-12-31 11:47] VITALS: BMI 25.1
[~2019-01-01 08:06] MED LIST: SODIUM CHLORIDE 0.9% 1,000 ML IV SCH
[2019-01-01 08:30] VITALS: BP 165/84; PULSE 77; RESP 16; TEMP 97.8
[2019-01-01] MEDS ORDERED: IV FLUID CONTINUATION 500 ML IV ONE (09:48)
--- NOTE | 2019-01-01 17:27 | P.PCN ---
Preoperative Diagnosis: Procedure Tilt table test Twelve-lead ECG EKG and tilt table test data reviewed with Dr. Berumen Indication for the procedure: Recurrent episodes of syncope Twelve-lead ECG showed sinus mechanism with normal NE, narrow QRS, normal QT interval, normal ST segments, no delta or epsilon waves Patient was hypertensive at baseline, baseline heart rate was 66, baseline blood pressure was 153/84 Patient was tilted upright at a 70 degree angle per protocol. Heart rate and blood pressure remained unchanged throughout the study. Blood pressure remained in the 150s systolic over 90s diastolic. Patient remained asymptomatic throughout the test At the end of the procedure the patient was laid supine Impression Normal twelve-lead EKG Patient was hypertensive throughout the test, no significant changes in heart rate or blood pressure in response to upright tilting no evidence for neurocardiogenic syncope or dysautonomia
== END 2019-01-01 10:40 | disposition home or self-care (01) ==
LOC: CATHEP 08:06
PROVIDERS: ATTEND Internal Medicine Clinical Cardiac Electrophysiology
DX: R55 Syncope and collapse (principal)
CPT/HCPCS: 93660